=== PATIENT | female | born 1970 | race Caucasian/White ===

== ENCOUNTER 2017-10-02 20:42 | Emergency (ER) | payer OTHER ==
[~2017-10-02 20:42] MED LIST: ADVA100A INH; ALBU1AER INH; PHEN12.5 PR; ZOFR4TAB3 PO
[2017-10-02 20:46] VITALS: BP 152/65; PULSE 78; RESP 20; TEMP 98.2; O2SAT 96
[2017-10-02] MEDS ORDERED: SERT-132 PO (21:01)
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
== END 2017-10-02 22:37 | disposition home or self-care (01) ==
LOC: PHEFT 20:42
DX: S90.02XA Contusion of left ankle, initial encounter (principal); M25.562 Pain in left knee; V87.7XXA Person injured in collision between other specified motor vehicles (traffic), initial encounter; Y92.89 Other specified places as the place of occurrence of the external cause
CPT/HCPCS: 99282